=== PATIENT | female | born 1960 | race Caucasian/White ===

== ENCOUNTER 2019-07-21 11:04 | Emergency (ER) | payer MEDICAID ==
[~2019-07-21] VITALS: Ht 157.5 cm; Wt 56.7 kg
[2019-07-21] MEDS ORDERED: MORPHINE SULFATE 4 MG/ML SYR/VIAL IV ONE ×2 (12:00→14:30)
[2019-07-21] MEDS ORDERED: ONDANSETRON HCL 4 MG/2 ML VIAL IV ONE (12:00)
[2019-07-21 14:43] VITALS: BP 165/90
== END 2019-07-21 15:47 | disposition home or self-care (01) ==
LOC: EDBD 11:04 → ER 11:04
DX: S72.342A Displaced spiral fracture of shaft of left femur, initial encounter for closed fracture (principal); J44.9 Chronic obstructive pulmonary disease, unspecified; I10 Essential (primary) hypertension; W18.39XA Other fall on same level, initial encounter; Y93.89 Activity, other specified; Y99.8 Other external cause status; Y92.89 Other specified places as the place of occurrence of the external cause
CPT/HCPCS: 29105; 73060; 73090; 96374; 96375; 96376; 99283; J2270; J2405